=== PATIENT | female | born 1985 | race Hispanic/Latino ===

== ENCOUNTER 2017-06-30 18:10 | Inpatient (IN) | payer OTHER ==
[2017-06-30 19:06] VITALS: BMI 31.5
[2017-06-30] MEDS ORDERED: Bicitra 30 ML UDCUP PO SCH (19:30)
[2017-06-30] MEDS ORDERED: Ondansetron HCl/PF 4 MG/2 ML Vial IVP PRN ×3 (19:31→21:18)
[2017-06-30] MEDS ORDERED: Ketorolac Tromethamine 30 MG/ML VIAL ONE (20:22)
[2017-06-30] MEDS ORDERED: Ondansetron HCl/PF 4 MG/2 ML Vial ONE (20:22)
[2017-06-30] MEDS ORDERED: Dexamethasone 4 mg/ml Vial ONE (20:22)
[2017-06-30] MEDS ORDERED: Oxytocin 10 UNITS/ML VIAL ONE (20:22)
[2017-06-30] MEDS ORDERED: PHENYLEPHRINE-NS 100 MCG/ML 10 ML SYRINGE ONE (20:22)
[2017-06-30] MEDS ORDERED: ePHEDrine/0.9% NaCl/PF SYRINGE 50 mg/10 ml ONE (20:22)
[2017-06-30 20:43] LABS: #Basophils 0.1 thou/uL (0.0-0.2); #Eosinphils 0.1 thou/uL (0.0-0.7); #Lymphocytes 1.6 thou/uL (1.20-3.40); #Monocytes 0.5 thou/uL (0.11-0.59); #Neutrophils 4.2 thou/uL (1.40-6.50); %Basophils 1.3 % (0.0-1.0); %Eosinophils 1.1 % (0.0-10.0); %Lymphocytes 24.9 % (21.0-51.0); %Monocytes 8.2 % (0.0-10.0); Hematocrit 39.5 % (36.0-47.0); Mean Platelet Volume 10.2 fL (7.4-10.4); Red Blood Cell (RBC) Count 4.05 mill/uL (4.20-5.40); White Blood Cell (WBC) Count 6.5 thou/uL (4.8-10.8)
[2017-06-30] MEDS ORDERED: ceFAZolin Sodium 1 GM VIAL ONE ×2 (21:16→21:17)
[2017-06-30] MEDS ORDERED: Meperidine HCl/PF 25 MG/ML VIAL SLOW IVP PRN (21:18)
[2017-06-30] MEDS ORDERED: Naloxone HCl 0.4 mg/ml Vial IV PRN (21:18)
[2017-06-30] MEDS ORDERED: Promethazine HCl 25 MG/ML VIAL IM PRN (21:18)
[2017-06-30] MEDS ORDERED: Promethazine HCl 25 MG SUPP PR PRN (21:18)
[2017-06-30] MEDS ORDERED: diphenhydrAMINE HCl 50 MG/ML 1 ML VIAL IVP PRN (21:18)
[2017-06-30] MEDS ORDERED: Naloxone HCl 0.4 mg/ml Vial IVP PRN ×2 (21:18)
[2017-06-30] MEDS ORDERED: HYDROmorphone 2 MG/ML VIAL SLOW IVP PRN (21:18)
[2017-06-30] MEDS ORDERED: Eucerin (Mineral Oil/Petrolatum,White) 30 gm Jar TOP PRN (21:18)
[2017-06-30] MEDS ORDERED: Midazolam HCl 2 mg/2 ml Vial ONE (21:23)
[2017-06-30] MEDS ORDERED: Communication Order-Pharmacy FS SCH (21:30)
[2017-06-30] MEDS ORDERED: Ketorolac Tromethamine 30 MG/ML VIAL IVP SCH (21:30)
[2017-06-30] MEDS ORDERED: Methylergonovine 0.2 MG TAB PO PRN (22:06)
[2017-06-30] MEDS ORDERED: Bisacodyl 10 MG SUPP PR PRN (22:06)
[2017-06-30] MEDS ORDERED: Acetaminophen 325 MG TAB PO PRN (22:06)
[2017-06-30] MEDS ORDERED: Simethicone Chewable 80 MG TAB PO PRN (22:06)
[2017-06-30] MEDS ORDERED: Zolpidem Tartrate 5 MG TAB PO PRN (22:06)
[2017-06-30] MEDS ORDERED: diphenhydrAMINE HCl 25 MG CAP PO PRN (22:06)
[2017-06-30] MEDS ORDERED: LR w/ Pitocin 40 units/1000 ML BAG IV SCH (22:15)
--- NOTE | 2017-07-01 | PDOC.LDHP ---
Labor and Delivery H&P Chief complaint: contractions HPI: 31 yo @38w5d by LMP c/w 9 week sono who presents with c/o ctx in latent labor with breech presentation, failed ECV last week. Current gestational age (weeks): 38 Due date: 07/09/17 Dating criteria: last menstrual period Grav: 4 Para: 3 OB History Details: 3 term SVDs without complications Current complications: breech Abnormal US findings: Yes Past Medical History: Denies Current medications: pre-kelsey vitamins Previous surgical history: none Allergies/Adverse Reactions: Allergies Allergy/AdvReac Type Severity Reaction Status Date / Time No Known Allergies Allergy Verified 06/30/17 19:06 Social history: none - Physical Exam Vital signs reviewed and normal: yes FHT: category 1 (140s, mod han, +accels, no decels ) - Vaginal Exam cm dilated: 1 Effacement: 0% Station: -2 - OB Labs Blood type: O RH: positive HIV: negative RPR: negative HEPSAg: negative 1 hour GCT: negative GBS: negative Urine drug screen: not done Additional Labs: Rubella immune - Assessment 38w5d IUP Latent labor Breech presentation, s/p failed ECV - Plan Plan: to OR for section, informed consent obtained, anesthesia consult for pain management -: TO OR for malpresentation in labor
--- NOTE | 2017-07-01 | PDOC.OPDEL ---
OB Operative/Delivery Note Delivery Dr/Surgeon: Carlotta Ospina, DO Assist: Lewis Avina MD Pre-Delivery Diagnosis: breech Procedure/Post Delivery Dx: primary low transverse CS Weeks gestation: 38 Anesthesia: spinal - Findings A Sex: female Weight: 8 lb 9 oz - 5 min: 9 (apgars 8/9) - Additional Findings/Plan Placenta delivered: spontaneous findings: low transverse hysterotomy without extension, normal uterus, normal tubes, normal ovaries, other (infant in meg breech presentation, clear amniotic fluid, placenta with accessory lobe ) Estimated blood loss: 800 cc Compilations/Other Findings: Dictation # [id number] Post delivery plan: routine recovery
[2017-07-01] MEDS: Lactated Ringer's 1,000 ML IV SCH ×6 (04:16→21:38)
[2017-07-01] MEDS: Misoprostol 200 MCG TAB PR SCH ×2 (04:17→23:53)
[2017-07-01] MEDS: Ketorolac Tromethamine 30 MG/ML VIAL IVP PRN ×2 (05:08→10:43)
[2017-07-01 05:17] LABS: Hematocrit 32.2 % (36.0-47.0); Mean Platelet Volume 9.9 fL (7.4-10.4); White Blood Cell (WBC) Count 10.4 thou/uL (4.8-10.8)
[2017-07-01] MEDS ORDERED: Ibuprofen 800 MG TAB PO SCH (06:00)
--- NOTE | 2017-07-01 06:24 | OP ---
PREOPERATIVE DIAGNOSES: 1. A 38-week, 5-day intrauterine . 2. Latent labor. 3. Meg breech presentation with the previous failed external cephalic version. POSTOPERATIVE DIAGNOSES: 1. A 38-week, 5-day intrauterine . 2. Latent labor. 3. Meg breech presentation with the previous failed external cephalic version. PROCEDURE: Primary low transverse delivery via Pfannenstiel skin incision. SURGEON: Carlotta Ospina D.O. FINANCIAL ASSISTANCE ADVISOR: Lewis Avina M.D. COMPLICATIONS: None. ANESTHESIA: Spinal. ESTIMATED BLOOD LOSS: 800 mL. IV FLUIDS: 1500 mL. URINE OUTPUT: 100 mL. FINDINGS: A viable female in meg breech presentation with Apgars 8 and 9, weighing 8 pounds 9 ounces Clear amniotic fluid. Accessory lobe of placenta as seen on previous sonogram, normal appearing uterus , fallopian tubes, and ovaries bilaterally. INDICATIONS FOR THE PROCEDURE: Ms. Elisha Olvera is a 31-year-old G4, P3 at 38 weeks and 5 days, who presented to labor and delivery with complaints of contractions, was found to be persistently all every 2 minutes and still in a meg breech presentation. The patient had undergone an attempted external cephalic version without success approximately 1 week ago. Therefore, a primary was recommended. PROCEDURE IN DETAIL: The patient was brought to the operating room, and spinal anesthesia was placed, and she was placed in supine position. SCDs were placed , and she was given Ancef for preoperative prophylaxis. The patient was prepped and draped in the sterile fashion. An official timeout was performed. Pfannenstiel skin incision was made using the scalpel, and this was carried down to underlying fascial layer. The fascia was incised in the midline using the scalpel and extended bilaterally using Hennessy scissors. Superior aspect of the fascial incision was grasped using Belgica clamps, tented upward, and dissected free from the underlying rectus abdominis muscles. The rectus abdominis muscles were bluntly. The peritoneum was entered using blunt dissection. An Ilan O retractor was placed into the abdomen for improved visualization. A low transverse hysterotomy was made using the scalpel. Infant was then delivered in meg breech presentation using gentle traction and gentle pressure in the usual fashion. No complications with delivery. The cord was clamped and cut and handed to the waiting Neonatology team. Cord sample and cord blood were obtained. The placenta was delivered spontaneously intact and the uterus was cleared of all clot and debris. The hysterotomy was closed in a running locking fashion using #1 Monocryl, creating hemostasis. The pelvis was irrigated and cleared of all clot and debris. Hysterotomy was again evaluated noting to be hemostatic. The Ilan O retractor was removed from the abdomen. The peritoneum was closed in a running fashion with 3-0-Vicryl. The rectus abdominis muscles were evaluated and hemostatic using the Bovie. The fascia was closed using 0 PDS. The subcutaneous layer was copiously irrigated, hemostatic with use of the Bovie. Subcutaneous layer was closed using 3-0 Vicryl, and the skin was closed using 4- 0 Monocryl and Dermabond. The patient tolerated the procedure well. There were no complications. All counts were correct x3. Mother and baby were transferred to routine recovery. BEAU
[2017-07-01] MEDS: Prenatal Vitamin 1 TAB PO SCH (10:02)
[2017-07-01] MEDS: Docusate (Surfak) 240 MG CAP PO SCH ×2 (10:03→21:35)
--- NOTE | 2017-07-01 11:22 | PRG ---
DATE OF SERVICE: 07/01/2017 This is just documentation and that I assisted as sugar laboratory assistant with a primary on Elisha Ru shanon for breech presentation. SURGEON: Dr. Carlotta Ospina DATE OF SURGERY: 06/30/2017.
--- NOTE | 2017-07-01 11:53 | PDOC.PP ---
Post Progress Note Post Day #: 1 -: Doing well. Pain controlled. Minimal lochia. Breast feeding. PO intake tolerated: yes Flatus: yes Ambulation: yes Vital Signs (12 hours) Temp Pulse Resp BP 07/01/17 11:31 97.6 F 87 20 100/58 L 07/01/17 08:19 98.4 F 76 20 100/56 L 07/01/17 08:05 98.4 F 76 20 07/01/17 04:30 98.3 F 76 14 07/01/17 02:30 99.3 F 77 18 113/58 L 07/01/17 01:15 98.3 F 71 16 119/74 07/01/17 00:05 99.1 F 79 18 120/70 Weight Weight 167 lb - Physical Examination General: NAD Cardiovascular: RRR Abdominal: no distention, appropriately TTP Deviation from normal: incision c/d/i with dermabond Fundus firm & at: below umbilius Extremities: negative homans (B) Skin: no rash Neurological: no gross focal deficits Psychiatric: A&Ox3 Result Diagrams: 07/01/17 04:08 Additional Labs: Post Labs Blood Type O POSITIVE 06/30/17 19:55 Hep Bs Antigen Non-Reactive S/CO (NonReactive) 06/30/17 20:28 (1) delivery delivered Code(s): O82 - ENCOUNTER FOR DELIVERY WITHOUT INDICATION Status: Acute (2) Breech presentation Code(s): O32.1XX0 - MATERNAL CARE FOR BREECH PRESENTATION, UNSP Status: Resolved (3) 38 weeks gestation of Code(s): Z3A.38 - 38 WEEKS GESTATION OF Status: Acute - Assessment/Plan Continue post op/ care. Plan for possible d/c tomorrow.
[2017-07-01] MEDS: HYDROcodone/Acetaminophen 5/325 mg Tablet PO PRN ×3 (13:48→22:15)
[2017-07-01] MEDS: Ibuprofen 800 MG TAB PO SCH (21:37)
[2017-07-02] MEDS: Ibuprofen 800 MG TAB PO SCH ×3 (05:36→21:20)
[2017-07-02] MEDS ORDERED: Ibuprofen 800 MG TAB PO SCH (06:00)
[2017-07-02] MEDS: Lactated Ringer's 1,000 ML IV SCH ×3 (06:18→22:54)
[2017-07-02] MEDS: Prenatal Vitamin 1 TAB PO SCH (08:07)
[2017-07-02] MEDS: HYDROcodone/Acetaminophen 5/325 mg Tablet PO PRN ×4 (08:07→22:14)
[2017-07-02] MEDS: Docusate (Surfak) 240 MG CAP PO SCH ×2 (08:07→20:08)
--- NOTE | 2017-07-02 08:20 | PDOC.PP ---
Post Progress Note Post Day #: 2 -: Doing well. Pain controlled. Minimal lochia. Reports some buring with urine PO intake tolerated: yes Flatus: yes Ambulation: yes Vital Signs (12 hours) Temp Pulse Resp BP 07/02/17 08:08 98.0 F 79 20 108/68 07/02/17 03:50 98.2 F 73 12 07/02/17 03:00 98.2 F 73 12 94/59 L 07/01/17 23:46 98.0 F 75 20 100/70 Weight Weight 167 lb - Physical Examination General: NAD Cardiovascular: RRR Abdominal: no distention, appropriately TTP Deviation from normal: incision c/d/i with dermabond Fundus firm & at: below umbilius Extremities: negative homans (B) Skin: no rash Neurological: no gross focal deficits Psychiatric: A&Ox3 Result Diagrams: 07/01/17 04:08 Additional Labs: Post Labs Blood Type O POSITIVE 06/30/17 19:55 Hep Bs Antigen Non-Reactive S/CO (NonReactive) 06/30/17 20:28 (1) delivery delivered Code(s): O82 - ENCOUNTER FOR DELIVERY WITHOUT INDICATION Status: Acute (2) Breech presentation Code(s): O32.1XX0 - MATERNAL CARE FOR BREECH PRESENTATION, UNSP Status: Resolved (3) 38 weeks gestation of Code(s): Z3A.38 - 38 WEEKS GESTATION OF Status: Resolved - Assessment/Plan Doing well post op/. Meeting all requirements for d/c home. Desires d/c home this afternoon. F/U 2 week incision check.
[2017-07-02] MEDS ORDERED: HYDROcodone/Acetaminophen 10/325 mg Tablet PO PRN (08:22)
[2017-07-02 10:02] LABS: Bilirubin Negative (Negative); Blood, Urine Moderate (Negative); Glucose, Urine (Dipstick) Negative (Negative); Ketone, Urine Negative (Negative); Nitrite Negative (Negative); Protein, Urine (Dipstick) Negative (Neg-Trace); Urobilinogen 0.2 mg/dL (0.2-1.0)
[2017-07-02 10:07] LABS: Bacteria/HPF None Seen HPF (None Seen); Hyaline Casts/LPF 0-3 HYALINE CAST LPF (0-3 Hyaline); RBC/HPF 0-3 HPF (0-3); Squamous Epithelial 0-3 HPF (0-3); WBC/HPF None Seen HPF (0-3)
[2017-07-02] MEDS ORDERED: HYDROcodone/Acetaminophen 10/325 mg Tablet PO SCH (12:00)
[2017-07-02 20:56] VITALS: TEMP 98
[2017-07-02] MEDS ORDERED: Lanolin Ointment 7 GM TUBE TOP PRN (22:04)
[2017-07-03] MEDS: HYDROcodone/Acetaminophen 5/325 mg Tablet PO PRN (05:34)
[2017-07-03] MEDS: Ibuprofen 800 MG TAB PO SCH ×2 (05:34→13:38)
[2017-07-03] MEDS: Lactated Ringer's 1,000 ML IV SCH ×2 (05:37→13:23)
--- NOTE | 2017-07-03 08:34 | PDOC.PP ---
Post Progress Note Post Day #: 3 -: Doing well. D/C held due to elevate bili for baby. Minimal pain and lochia. PO intake tolerated: yes Flatus: yes Ambulation: yes Weight Weight 167 lb - Physical Examination General: NAD Cardiovascular: RRR Abdominal: no distention, appropriately TTP Deviation from normal: incision c/d/i Fundus firm & at: below umbilicus Extremities: negative homans (B) Skin: no rash Neurological: no gross focal deficits Psychiatric: A&Ox3 Result Diagrams: 07/01/17 04:08 Additional Labs: Post Labs Blood Type O POSITIVE 06/30/17 19:55 Hep Bs Antigen Non-Reactive S/CO (NonReactive) 06/30/17 20:28 (1) delivery delivered Code(s): O82 - ENCOUNTER FOR DELIVERY WITHOUT INDICATION Status: Acute (2) Breech presentation Code(s): O32.1XX0 - MATERNAL CARE FOR BREECH PRESENTATION, UNSP Status: Resolved (3) 38 weeks gestation of Code(s): Z3A.38 - 38 WEEKS GESTATION OF Status: Resolved - Assessment/Plan Doing well. D/C home today
[2017-07-03] MEDS: Docusate (Surfak) 240 MG CAP PO SCH (08:42)
[2017-07-03] MEDS: Prenatal Vitamin 1 TAB PO SCH (08:42)
[2017-07-03 10:34] VITALS: BP 102/58
== END 2017-07-03 17:05 | disposition home or self-care (01) | DRG 766 ==
LOC: L&D/OP 18:10 → L&D 19:40 → OBSVTOIN 19:40 → 3SW 07-01 00:25
PROVIDERS: ADMIT Obstetrics & Gynecology; ATTEND Obstetrics & Gynecology
PROC: 10D00Z1 Extraction of Products of Conception, Low, Open Approach (ICD-10-PCS; principal; 2017-06-30)
DX: O64.1XX0 Obstructed labor due to breech presentation, not applicable or unspecified (principal); Z37.0 Single live birth; Z3A.38 38 weeks gestation of pregnancy
CPT/HCPCS: 36415; 76815; 81003; 81015; 85025; 85027; 86780; 86850; 86900; 86901; 87340; 88307; A4353; J0690; J1100; J1885; J2250; J2274; J2405; J2590

== ENCOUNTER 2018-02-28 23:40 | Emergency (ER) | payer OTHER ==
[2018-03-01 00:16] LABS: #Monocytes 0.2 thou/uL (0.11-0.59); #Neutrophils 6.2 thou/uL (1.40-6.50); %Basophils 0.5 % (0.0-1.0); %Eosinophils 0.3 % (0.0-10.0); %Lymphocytes 13.8 % (21.0-51.0); %Monocytes 2.9 % (0.0-10.0); %Neutrophils 82.5 % (42.0-75.0); Hemoglobin 12.6 g/dL (12.0-16.0); Mean Corpuscular HGB CONC 34.5 g/dL (32.0-36.0); Mean Corpuscular Volume 92.7 fl (81.0-99.0); Mean Platelet Volume 9.7 fL (7.4-10.4); Platelet Count 162 thou/uL (130-400); RBC Distribution Width 11.9 % (11.5-14.5); Red Blood Cell (RBC) Count 3.93 mill/uL (4.20-5.40); White Blood Cell (WBC) Count 7.5 thou/uL (4.8-10.8)
[2018-03-01 00:19] LABS: Bilirubin Negative (Negative); Blood, Urine Negative (Negative); Clarity CLEAR (Clear); Glucose, Urine (Dipstick) Negative (Negative); Leukocyte Small (Negative); Nitrite Negative (Negative); Protein, Urine (Dipstick) Trace mg/dL (Neg-Trace); Specific Gravity, Urine 1.018 (1.002-1.036); Urobilinogen 0.2 mg/dL (0.2-1.0); pH, Urine 7.5 (5.0-9.0)
[2018-03-01 00:20] LABS: BHCG - Serum POSITIVE (NEGATIVE); Pregs Control Background? CLEAR/WHITE (CLR/WHITE); Pregs Control Bar Appear? YES (CONTROL BAR)
[2018-03-01 00:26] LABS: Bacteria/HPF Rare-Few HPF (None Seen); Hyaline Casts/LPF 0-3 HYALINE CAST LPF (0-3 Hyaline); Pathc Cast-AUWi Flag 0.14 (0-2.49); RBC/HPF 0-3 HPF (0-3)
[2018-03-01 00:35] LABS: ALT (SGPT) 52 U/L (8-55); AST (SGOT) 34 U/L (5-34); Albumin 4.2 g/dL (3.5-5.0); Alkaline Phosphatase 102 U/L (40-150); Anion Gap 13 mmol/L (10-20); BUN (Urea Nitrogen) 6 mg/dL (7.0-18.7); Bilirubin, Total 1.4 mg/dL (0.2-1.2); Calc. Creatinine Clearance 0 mL/min (70-130); Calcium 9.5 mg/dL (7.8-10.44); Carbon Dioxide 17 mmol/L (22-29); Chloride 110 mmol/L (98-107); Estimated GFR-MDRD Greater than 90; Globulin 3.3 g/dL (2.4-3.5); Glucose 128 mg/dL (70-105); Potassium 3.4 mmol/L (3.5-5.1); Protein, Total 7.5 g/dL (6.0-8.3); Sodium 137 mmol/L (136-145)
== END 2018-03-01 01:50 | disposition left against medical advice (07) ==
LOC: ERS 23:40
DX: Z53.21 Procedure and treatment not carried out due to patient leaving prior to being seen by health care provider (principal)
CPT/HCPCS: 36415; 80053; 81003; 81015; 84703; 85025

== ENCOUNTER 2018-10-16 05:28 | Inpatient (IN) | payer OTHER ==
--- NOTE | 2018-10-15 20:40 | PDOC.LDHP ---
Labor and Delivery H&P Chief complaint: scheduled section HPI: 33 yo @ 39w0d by LMP c/w 8 week CRL with h/o LTCS x1 for breech presentation in 06/2017. Otherwise antepartum course uncomplicated. Pt has been counseled and desires RLTCS due to proximity of deliveries, declines TOLAC. Her plans to have vasectomy for contraception after . Current gestational age (weeks): 39 Due date: 10/23/18 Dating criteria: last menstrual period Grav: 5 Para: 4 OB History Details: 3 term SVDs 1 LTCS 2017 for breech Current complications: none Abnormal US findings: No Past Medical History: Denies Previous surgical history: low tranverse CS Allergies/Adverse Reactions: Allergies Allergy/AdvReac Type Severity Reaction Status Date / Time No Known Allergies Allergy Verified 10/16/18 06:23 Social history: none - Physical Exam Vital signs reviewed and normal: yes General: NAD Heart: RRR Lungs: nonlabored breathing Abdomen: gravid Extremeties: no edema FHT: category 1 (120s, mod han, +accels, no decels) [place] contractions every: occasional ctx - OB Labs Blood type: O RH: positive Antibody Screen: negative HIV: negative RPR: negative HEPSAg: negative 1 hour GCT: negative GBS: negative Urine drug screen: negative Rubella: non-immune Additional Labs: SS wnl - Assessment 39w0d IUP H/O LTCS x1; RLTCS Rubella non-immune - Plan Plan: to OR for section, informed consent obtained, anesthesia consult for pain management
[2018-10-16] MEDS: Lactated Ringer's 1,000 ML IV SCH ×2 (05:30→07:25)
[2018-10-16] MEDS ORDERED: Butorphanol Tartrate 1 MG/ML VIAL SLOW IVP PRN (06:14)
[2018-10-16] MEDS ORDERED: Promethazine HCl 25 MG/ML VIAL IM PRN ×2 (06:14→08:42)
[2018-10-16] MEDS ORDERED: Bicitra 30 ML UDCUP PO SCH (06:14)
[2018-10-16] MEDS ORDERED: Acetaminophen 500 MG TAB PO PRN (06:14)
[2018-10-16] MEDS ORDERED: CEFAZOLIN/Water 2 GM/20 ML SYRINGE SLOW IVP SCH (06:14)
[2018-10-16] MEDS ORDERED: Ondansetron PF 4 MG/2 ML Vial IVP PRN ×2 (06:14→08:42)
[2018-10-16 06:32] VITALS: BMI 29.8
[2018-10-16 06:37] LABS: Hemoglobin 11.5 g/dL (12.0-16.0); Mean Corpuscular HGB CONC 34.6 g/dL (32.0-36.0); Mean Corpuscular Hemoglobin 32.6 pg (27.0-31.0); Mean Corpuscular Volume 94.1 fL (78.0-98.0); Mean Platelet Volume 9.2 fL (7.4-10.4); Platelet Count 144 thou/uL (130-400); RBC Distribution Width 13.3 % (11.5-14.5); Red Blood Cell (RBC) Count 3.54 mill/uL (4.20-5.40); White Blood Cell (WBC) Count 7.1 thou/uL (4.8-10.8)
[2018-10-16] MEDS ORDERED: Morphine PF 1 MG/ML SYR ONE (07:13)
[2018-10-16] MEDS ORDERED: ePHEDrine/0.9% NaCl/PF SYRINGE 50 mg/10 ml ONE ×2 (07:14→11:05)
[2018-10-16] MEDS ORDERED: PHENYLEPHRINE-NS 100 MCG/ML 10 ML SYRINGE ONE ×2 (07:14→11:05)
[2018-10-16] MEDS ORDERED: Oxytocin 10 UNITS/ML VIAL ONE (07:14)
[2018-10-16] MEDS ORDERED: CEFAZOLIN 2 GM/50 ML-DEXTROSE 2 GM in Premix Bag 1 BAG IVPB SCH (07:15)
[2018-10-16 07:22] LABS: Syphilis Antibody Nonreactive (Nonreactive); Syphilis Antibody Index 0.02 S/CO (<1.00 Non-Reactive)
[2018-10-16 07:37] LABS: HBSAg Index 0.19 S/CO (0-0.99); HIV (1/2) Antibody/Antigen Non-Reactive (NonReactive); HIV 1/2 INDEX 0.08 S/CO (<1.00); Hep B Surf Ag Non-Reactive S/CO (NonReactive)
[2018-10-16] MEDS ORDERED: Midazolam HCl 2 mg/2 ml Vial ONE (08:11)
--- NOTE | 2018-10-16 08:39 | PDOC.OPDEL ---
OB Operative/Delivery Note Delivery Dr/Surgeon: Carlotta Ospina DO Assist: Farzana Chung MD Pre-Delivery Diagnosis: scheduled section Procedure/Post Delivery Dx: repeat low transverse CS Weeks gestation: 39 Anesthesia: spinal - Findings A Sex: female - 1 min: 6 - 5 min: 9 - Additional Findings/Plan Placenta delivered: spontaneous findings: low transverse hysterotomy without extension, normal uterus, normal tubes, normal ovaries, other (uterine window in VIDYA approx 1cm in height and and 4 cm in width) Estimated blood loss: QBL 430 mL Compilations/Other Findings: in cephalic presentation Clear amniotic fluid Normal appearing placenta Post delivery plan: routine recovery
[2018-10-16] MEDS ORDERED: Naloxone HCl 0.4 mg/ml Vial IV PRN (08:42)
[2018-10-16] MEDS ORDERED: Naloxone HCl 0.4 mg/ml Vial IVP PRN ×2 (08:42)
[2018-10-16] MEDS ORDERED: diphenhydrAMINE 50 MG/ML VIAL IVP PRN (08:42)
[2018-10-16] MEDS ORDERED: Eucerin (Mineral Oil/Petrolatum,White) 30 gm Jar TOP PRN (08:42)
[2018-10-16] MEDS ORDERED: Communication Order-Pharmacy FS SCH (08:45)
[2018-10-16] MEDS ORDERED: Ketorolac Tromethamine 30 MG/ML VIAL ONE (09:00)
[2018-10-16] MEDS: Ketorolac Tromethamine 30 MG/ML VIAL IVP PRN ×2 (09:02→14:19)
--- NOTE | 2018-10-16 10:59 | PDOC.EVN ---
Event Note - Event Note Event Note: OBGYN organic preparation analyst: Postop Call: Called for blood clot PV in RR with intraop QBL 450ml or so. Pulse 88 Clots were 260-270.. Total QQBL now at approx 700ml. IV Pitocin in use (2nd bad) I will give methergine .2 now. No evidence PPH at this time.
[2018-10-16] MEDS ORDERED: Methylergonovine 0.2 MG/ML VIAL IM SCH (11:00)
[2018-10-16] MEDS ORDERED: Methylergonovine 0.2 MG/ML VIAL ONE (11:02)
[2018-10-16] MEDS ORDERED: Measles/Mumps/Rubella 10 MCG/0.5 ML VIAL SC ONE (12:53)
[2018-10-16] MEDS ORDERED: Zolpidem Tartrate 5 MG TAB PO PRN (12:53)
[2018-10-16] MEDS ORDERED: Misoprostol 200 MCG TAB PR PRN (12:53)
[2018-10-16] MEDS ORDERED: Methylergonovine 0.2 MG/ML VIAL IM PRN (12:53)
[2018-10-16] MEDS ORDERED: Bisacodyl 10 MG SUPP PR PRN (12:53)
[2018-10-16] MEDS ORDERED: NS / Oxytocin 40 units/1000ml 1,000 ML IV SCH (12:53)
[2018-10-16] MEDS ORDERED: Lanolin Ointment 7 GM TUBE TOP PRN (12:53)
[2018-10-16] MEDS ORDERED: Prenatal Vitamin 1 TAB PO SCH (13:00)
[2018-10-16] MEDS ORDERED: Docusate Calcium (SURFAK) 240 MG CAP PO SCH (13:00)
[2018-10-16] MEDS: diphenhydrAMINE 25 MG CAP PO PRN (14:19)
[2018-10-16] MEDS: Docusate Calcium (SURFAK) 240 MG CAP PO SCH (21:03)
[2018-10-17] MEDS ORDERED: Sodium Chloride 0.9% 10 ML ONE ×2 (00:28→00:37)
[2018-10-17] MEDS: Ketorolac Tromethamine 30 MG/ML VIAL IVP PRN (00:32)
[2018-10-17] MEDS: diphenhydrAMINE 25 MG CAP PO PRN ×2 (00:57→11:42)
[2018-10-17] MEDS: Lactated Ringer's 1,000 ML IV SCH ×4 (02:24→20:43)
[2018-10-17] MEDS: HYDROcodone/Acetaminophen 5/325 mg Tablet PO PRN ×5 (05:37→21:26)
[2018-10-17] MEDS: Simethicone Chewable 80 MG TAB PO PRN ×3 (05:38→21:27)
[2018-10-17 05:51] LABS: #Eosinphils 0.1 thou/uL (0.0-0.7); #Monocytes 0.8 thou/uL (0.11-0.59); #Neutrophils 7.4 thou/uL (1.40-6.50); %Basophils 0.3 % (0.0-1.0); %Eosinophils 1.1 % (0.0-10.0); %Lymphocytes 19.7 % (21.0-51.0); %Monocytes 7.5 % (0.0-10.0); %Neutrophils 71.4 % (42.0-75.0); Hemoglobin 9.4 g/dL (12.0-16.0); Mean Corpuscular HGB CONC 34.3 g/dL (32.0-36.0); Mean Corpuscular Hemoglobin 32.5 pg (27.0-31.0); Mean Corpuscular Volume 94.7 fL (78.0-98.0); Mean Platelet Volume 8.9 fL (7.4-10.4); Platelet Count 124 thou/uL (130-400); RBC Distribution Width 13.1 % (11.5-14.5); White Blood Cell (WBC) Count 10.3 thou/uL (4.8-10.8)
--- NOTE | 2018-10-17 06:13 | PDOC.PP ---
Post Progress Note Post Day #: 1 Subjective: Doing well PO intake tolerated: yes Flatus: yes Ambulation: yes Vital Signs (12 hours) Temp Pulse Resp BP Pulse Ox 10/17/18 05:00 98.4 F 82 18 109/72 10/16/18 23:30 98.7 F 104 H 18 131/81 10/16/18 20:15 98.0 F 89 16 114/68 97 Weight Weight 158 lb - Physical Examination General: NAD Cardiovascular: no m/r/g Respiratory: clear to auscultation bilaterally, non-labored breathing Abdominal: + bowel sounds, lochia, no distention, appropriately TTP Extremities: negative homans (B) Skin: CS incision dry & intact (sutured incision C/D/I..DB in use) Neurological: no gross focal deficits Psychiatric: A&Ox3, normal affect Result Diagrams: 10/17/18 04:59 Additional Labs: Post Labs Blood Type O POSITIVE 10/16/18 06:15 Hep Bs Antigen Non-Reactive S/CO (NonReactive) 10/16/18 06:15 (1) delivery delivered Code(s): O82 - ENCOUNTER FOR DELIVERY WITHOUT INDICATION Status: Acute - Assessment/Plan POD 1 s/p repeat CS with noted incidental uterine window. Doing well Plan: Routine Postop care ambulate pain meds prn vitals stable [place] put in [facility] meds for outpatient care once DC'd to home
[2018-10-17] MEDS: Ibuprofen 800 MG TAB PO SCH ×3 (07:50→21:26)
[2018-10-17] MEDS: Docusate Calcium (SURFAK) 240 MG CAP PO SCH ×2 (07:50→21:26)
[2018-10-17] MEDS: Prenatal Vitamin 1 TAB PO SCH (07:50)
[2018-10-18] MEDS: HYDROcodone/Acetaminophen 5/325 mg Tablet PO PRN ×3 (01:41→13:36)
[2018-10-18] MEDS: Ibuprofen 800 MG TAB PO SCH ×2 (06:11→14:10)
[2018-10-18] MEDS: Lactated Ringer's 1,000 ML IV SCH (06:30)
[2018-10-18 08:14] VITALS: BP 118/78; TEMP 98
--- NOTE | 2018-10-18 08:28 | PRG ---
DATE OF SERVICE: 10/18/2018 PRIMARY OB: Carlotta Ospina, SUBJECTIVE: The patient is postop day #2, status post repeat at term by Dr. Ospina. For complete details, please refer to her dictated note. The patient reports that she is tolerating p.o., voiding on her own, having decreased lochia and good pain control. OBJECTIVE: VITAL SIGNS: Blood pressure is 117/63, temperature 98.1, pulse of 79, respiratory rate of 16. GENERAL: The patient appears to be in no acute distress. She is alert, oriented, cooperative, and pleasant to interact with. HEAD: Normocephalic, atraumatic. ABDOMEN: Fundus is firm. Incision is clean, dry, and intact. EXTREMITIES: Nontender and nonedematous. LABORATORY DATA: Hemoglobin drop is from 11.5 to 9.4, hematocrit 33.3 to 27.5, platelets 124,000. ASSESSMENT AND PLAN: The patient is postop day #2, status post repeat scheduled. The patient's postoperative recovery is routine as expected. We will continue postoperative care and anticipate discharge tomorrow by Dr. Ospina. Job ID: [id number]
[2018-10-18] MEDS: Prenatal Vitamin 1 TAB PO SCH (09:11)
[2018-10-18] MEDS: Docusate Calcium (SURFAK) 240 MG CAP PO SCH (09:11)
[2018-10-18] MEDS ORDERED: Measles/Mumps/Rubella 10 MCG/0.5 ML VIAL SC ONE (13:00)
--- NOTE | 2018-10-19 11:06 | OP ---
DATE OF PROCEDURE: 10/16/2018 PREOPERATIVE DIAGNOSES: 1. A 39 weeks and 0-day intrauterine . 2. History of low-transverse delivery x1 and declines trial of labor. POSTOPERATIVE DIAGNOSES: 1. A 39 weeks and 0-day intrauterine . 2. History of low-transverse delivery x1 and declines trial of labor. PROCEDURE PERFORMED: Repeat low-transverse section via Pfannenstiel skin incision. PLUNGER MACHINE OPERATOR: Farzana Chung MD COMPLICATIONS: None. ESTIMATED BLOOD LOSS: 430 mL. ANESTHESIA: Spinal. FINDINGS: Normal-appearing uterus, fallopian tubes, and ovaries bilaterally. There was a uterine window in the lower uterine segment approximately 1 cm in height and 4 cm in width. in cephalic presentation with Apgars 6 and 9. Clear amniotic fluid. Normal-appearing placenta. Hemostasis achieved after closure of hysterotomy. INDICATIONS FOR PROCEDURE: Ms. Elisha Olvera is a 33-year-old, G5, P4, at 39 weeks and 0 days by LMP consistent with an 8-week crown-rump length, who presents for her repeat delivery. The patient has a history of a low-transverse section x1 for breech presentation in June 2017 and elected for a repeat delivery due to the proximity of delivery. The patient was appropriately consented and counseled and decline a trial of labor. DESCRIPTION OF PROCEDURE: The patient was brought to the operating room. She was placed under spinal anesthesia. The patient placed in supine position with a leftward tilt. A Childress catheter was placed. She was prepped and draped in a sterile fashion. An official time-out was performed. She was given Ancef 2 g for surgical prophylaxis. A Pfannenstiel skin incision was made using the scalpel and the previous skin incision was carried down to the underlying fascial layer. The fascia was then incised in the midline and was extended bilaterally using Hennessy scissors. The superior aspect of the fascial incision was grasped and elevated and dissected from the underlying rectus abdominis muscles using Belgica clamps. The same was done to the inferior aspect of the fascial incision and the peritoneum was then entered bluntly. The Ilan O retractor was placed in the abdomen. A low-transverse hysterotomy was made through the uterine window. This was extended using blunt dissection. Amniotic membranes were ruptured revealing clear amniotic fluid. The baby was then delivered in cephalic presentation without difficulty. There was cry noted at delivery. The infant's cord was clamped and cut, and the was handed to awaiting Neonatology Team. Cord sample and cord blood were obtained. The placenta was delivered spontaneously intact. The uterus was cleared of all clot and debris. The hysterotomy was closed in a running locking fashion using 0 Monocryl with area on the left apex that required additional [id number] stitch to achieve hemostasis of the cornua. The pelvis was irrigated and cleared of all clot and debris. The fallopian tubes and ovaries were evaluated and normal in appearance. The peritoneum was closed in a running fashion using 3-0 chromic. The rectus abdominis muscles were evaluated and hemostatic using the Bovie. The fascia was closed using 0 PDS. The subcutaneous layer was copiously irrigated and hemostatic using the Bovie. Subcutaneous layer was closed using 3-0 Vicryl and the skin was closed using 4-0 Monocryl and Dermabond. The patient tolerated the procedure well. There were no complications. All counts were correct x3. The was transferred to the nursery possibly do have a slight problem transitioning, however, was doing well and the mother will be transferred to a routine recovery. Job ID: [id number]
== END 2018-10-18 14:25 | disposition home or self-care (01) | DRG 788 ==
LOC: L&D 05:28 → 3SW 13:44
PROVIDERS: ADMIT Obstetrics & Gynecology; ATTEND Obstetrics & Gynecology
PROC: 10D00Z1 Extraction of Products of Conception, Low, Open Approach (ICD-10-PCS; principal; 2018-10-16)
DX: O34.211 Maternal care for low transverse scar from previous cesarean delivery (principal); Z3A.39 39 weeks gestation of pregnancy; Z37.0 Single live birth
CPT/HCPCS: 36415; 51702; 85025; 85027; 86780; 86850; 86900; 86901; 87340; 87389; 90707; J1885; J2210; J2250; J2274; J2590